=== PATIENT | male | born 2005 | race Caucasian/White ===

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

== ENCOUNTER 2024-02-11 16:15 | Emergency (ER) | payer BC, SELFPAY ==
[2024-02-11 16:55] VITALS: BP 112/67; PULSE 64; RESP 20; TEMP 37.2; O2SAT 100; BMI 21.6
--- NOTE | 2024-02-11 17:17 | ED_ITS ---
Discharge Plan Disposition Patient Disposition: Home, Self-Care Condition: Good Referrals Follow up/Referrals: Bridgett Rod MD [Primary Care Provider] - See instructions Activity Restrictions/Add. Instructions Additional Instructions/Restrictions: Follow up with your Family Doctor in the next 5-7 days for the results and treatment if needed Withstain from sexual activity until your test is negative or you have treatment Follow up with your Family Doctor as needed Clinical Impressions Clinical Impression: Exposure to chlamydia Instructions Patient Instructions: Informing Partners of STI Patients Reduces Ongoing and Recurrent Sexually T, Let's Talk About Sex (and STIs), Chlamydia Print Language Print Language: Telugu Discharge ED Provider: Joann Menchaca [facility] HPI General Stated complaint: STI test Mode of Arrival: Ambulatory Source of Information: Patient Limitations: No Limitations Time Seen by Provider: 02/11/24 17:17 Description of Symptoms (Recalled from Triage Doc. by RN): PATIENT REQUESTING CHLAMYDIA/STD TEST HEENT Symptoms (Recalled from RN notes): No Resp Symptoms (Recalled from RN notes): No Skin Symptoms (Recalled from RN notes): No MS Symptoms (Recalled from RN notes): No Functional Status (Recalled from RN notes): WNL History of Present Illness Provider Complaint: Patient requesting to be tested for Chlamydia States he was with a Tender date a couple months ago and text and said she has Chlamydia not sure if she had it when she was with him or not and he isnt having any symptoms but wanted to get tested Related Data Allergies Allergy/AdvReac Type Severity Reaction Status Date / Time No Known Allergies Allergy Verified 03/20/23 14:13 Worker's Comp Is this a Worker's Comp case?: No [facility] Disclaimer: The information contained in this section may have been updated after the patient was seen, as this information can be updated by other users. Social History (Updated 03/20/23 @ 14:24 by Joann Menchaca APRN) Smoking Status: Unknown if ever smoked alcohol intake: never current occupational status: student Travel in the last 8 weeks: None ROS Obtained: Yes All systems reviewed & no additional complaints except as documented and Yes Systems reviewed as appropriate & no additional complaints except as documented Constitutional Constitutional: Reports system reviewed and no additional complaints, except as documented and Reports as per HPI Eyes Eyes: Reports system reviewed and no additional complaints, except as documented and Reports as per HPI ENT Ears, Nose, Mouth, and Throat: Reports system reviewed and no additional complaints, except as documented and Reports as per HPI Cardiovascular Cardiovascular: Reports system reviewed and no additional complaints, except as documented and Reports as per HPI Respiratory Respiratory: Reports system reviewed and no additional complaints, except as documented and Reports as per HPI Gastrointestinal Gastrointestingal: Reports system reviewed and no additional complaints, except as documented and as per HPI Genitourinary Male Genitourinary: Reports system reviewed and no additional complaints, except as documented, Reports as per HPI, Denies difficulty urinating, Denies difficulty with ejaculations, Denies penile ulceration, Denies genital lesions, Denies genital pain, Denies painful ejaculations, Denies penile discharge, Denies testicular pain and Denies urinary frequency Physical Exam General General appearance: alert and in no apparent distress ENT ENT exam: Present mucous membranes moist Respiratory Respiratory exam: Present normal lung sounds bilaterally; Absent respiratory distress or wheezes Cardiovascular Cardiovascular exam: Present regular rate, normal rhythm and normal heart sounds Abdominal Exam Abdominal exam: Present soft and normal bowel sounds; Absent distention or tenderness Neurological Exam Neurological exam: Present alert, oriented X3 and normal gait Medical Decision Making Kavon Inquiry Pt receiving controlled substance: No Kavon was queried for this patient: No Vital Signs: 02/11/24 16:55 Temperature 99.0 F Temperature Source Oral Pulse Rate [Left Brachial] 64 Respiratory Rate 20 Blood Pressure [Left Arm] 112/67 Blood Pressure Mean [Left Arm] 82 Blood Pressure Source [Left Arm] Automatic Cuff Blood Pressure Position [Left Arm] Sitting 02 Sat by Pulse Oximetry 100 Oxygen Delivery Method Room Air Orders (Tests/Meds): ORDERS Category Date Time Status UA [Urinalysis and Microscopic] Stat Lab 02/11/24 17:11 Ordered
[2024-02-11 17:23] LABS: Microscopic, Urine URINE MICROSCOPIC (MICROSCOPIC)
[2024-02-11 17:29] VITALS: BP 112/67; PULSE 64; RESP 20; TEMP 37.2; O2SAT 100
[2024-02-11 17:33] LABS: Appearance,Urine CLEAR (Clear); Bilirubin,Urine Negative (Negative); Blood, Urine Negative (Negative); Color,Urine YELLOW (Yellow); Glucose,Urine (UA) Negative (Negative); Ketones,Urine Negative (Negative); Leukocyte Esterase,Urine Negative (Negative); Nitrate,Urine Negative (Negative); Protein,Urine Negative (Negative); Specific Gravity, Urine 1.025 (1.005-1.030); Urobilinogen,Urine 0.2 EU/dl (0.2)
[2024-02-11 17:43] LABS: WBC,Urine Occasional #/hpf (0-3)
[2024-02-14 06:18] LABS: Neisseria gonorrhoeae, NAA Negative (Negative)
--- NOTE | 2024-02-14 10:30 | PC.NURSE ---
I relayed pts positive chlamydia test to [place]. I instructed him to take all of the antibiotics as directed that were called in for him today.
== END 2024-02-11 17:34 | disposition home or self-care (01) ==
PROVIDERS: Emergency Provider Nurse Practitioner; PCP Pediatrics
DX: A56.2 Chlamydial infection of genitourinary tract, unspecified (principal)
CPT/HCPCS: 81001; 87491; 87591; 99212; 99214; G0463

== ENCOUNTER 2024-03-02 10:50 | Emergency (ER) | payer BC, SELFPAY ==
[2024-03-02 11:02] VITALS: BP 138/75; PULSE 72; RESP 18; TEMP 36.9; O2SAT 97; BMI 21.7
--- NOTE | 2024-03-02 11:25 | EXP.UTC ---
Discharge Plan Disposition Patient Disposition: Home, Self-Care Condition: Good Prescriptions Prescriptions: New azithromycin 500 mg tablet 1,000 mg PO DAILY 1 Days Qty: 2 0RF No Action doxycycline hyclate 100 mg capsule 100 mg PO BID 7 Days Qty: 14 0RF Referrals Follow up/Referrals: Provider,Referral, MD [Primary Care Provider] - See instructions Activity Restrictions/Add. Instructions Additional Instructions/Restrictions: Take medication as prescribed. Retest in a month if you have persistent symptoms. Retest in 3 months to identify any reinfection. Refrain from sexual activity until antibiotics complete and symptoms resolve and sex partner has been treated. Wear condoms for protection during sex. Clinical Impressions Clinical Impression: Chlamydia Instructions Patient Instructions: Chlamydia, Chlamydia: The Silent STD Print Language Print Language: Palestinian Discharge ED Provider: Richa Luong [facility] [place] HPI General Stated complaint: STD test Mode of Arrival: Ambulatory Source of Information: Patient Time Seen by Provider: 03/02/24 11:25 Description of Symptoms (Recalled from Triage Doc. by RN): RETEST FOR STD AFTER BEING ON ABX FOR A WEEK, WORRIED CAUSE HE MISSED A DOSE OR TWO D/T VOMITING, NO S/S HEENT Symptoms (Recalled from RN notes): No Resp Symptoms (Recalled from RN notes): No Skin Symptoms (Recalled from RN notes): No MS Symptoms (Recalled from RN notes): No Functional Status (Recalled from RN notes): WNL History of Present Illness Provider Complaint: Pt reports that he only took one pill a day for 3 days then vomited a pill the next day. He states that he only took two pills a day for 3 days. He is concerned due to nonadherence to treatment. Related Data Previous Rx's ?Medication ?Instructions ?Recorded doxycycline hyclate 100 mg capsule 100 mg PO BID 7 days #14 caps 02/14/24 azithromycin 500 mg tablet 1,000 mg (2 x 500 mg) PO DAILY 1 03/02/24 day #2 tabs Allergies Allergy/AdvReac Type Severity Reaction Status Date / Time No Known Allergies Allergy Verified 03/20/23 14:13 Worker's Comp Is this a Worker's Comp case?: No [facility] Disclaimer: The information contained in this section may have been updated after the patient was seen, as this information can be updated by other users. Social History (Updated 03/20/23 @ 14:24 by Nataly Menchaca, [employer]) Smoking Status: Unknown if ever smoked alcohol intake: never current occupational status: student Travel in the last 8 weeks: None ROS Obtained: Yes All systems reviewed & no additional complaints except as documented Constitutional Constitutional: Reports system reviewed and no additional complaints, except as documented Eyes Eyes: Reports system reviewed and no additional complaints, except as documented ENT Ears, Nose, Mouth, and Throat: Reports system reviewed and no additional complaints, except as documented Cardiovascular Cardiovascular: Reports system reviewed and no additional complaints, except as documented Respiratory Respiratory: Reports system reviewed and no additional complaints, except as documented Gastrointestinal Gastrointestingal: Reports system reviewed and no additional complaints, except as documented Genitourinary Male Genitourinary: Reports system reviewed and no additional complaints, except as documented Musculoskeletal Musculoskeletal: Reports system reviewed and no additional complaints, except as documented Integumentary/Breasts Skin/Breast: Reports system reviewed and no additional complaints, except as documented Neurologic Neurologic: Reports system reviewed and no additional complaints, except as documented Hematologic/Lymphatic Henatologic/Lymphatic: Reports system reviewed and no additional complaints, except as documented Allergic/Immunologic Allergic/Immunologic: Reports system reviewed and no additional complaints, except as documented Physical Exam General General appearance: alert and in no apparent distress Head Head exam: atraumatic and normocephalic Eye Eye exam: Present normal appearance ENT ENT exam: Present normal oropharynx Neck Neck exam: Present normal inspection Chest Chest inspection: Present normal inspection and symmetric chest wall rise Respiratory Respiratory exam: Present normal lung sounds bilaterally Cardiovascular Cardiovascular exam: Present regular rate, normal rhythm and normal heart sounds Abdominal Exam Abdominal exam: Present soft Extremities Exam Extremities exam: Present normal inspection Back Exam Back exam: Present normal inspection Neurological Exam Neurological exam: Present alert and oriented X3 Psychiatric Psychiatric exam: Present normal affect and normal mood Skin Skin exam: Present warm, dry and intact Lymphatic Lymphatic Findings: no adenopathy Medical Decision Making Medical Records Screening: Per USPSTF and CDC recommendations, given the prevalence of disease in our region, it is our hospital?s policy to screen for HIV and viral Hepatitis for all patients aged 18 and over and those with ongoing risk factors. Kavon Inquiry Pt receiving controlled substance: No Kavon was queried for this patient: No Vital Signs: 03/02/24 11:02 Temperature 98.4 F Temperature Source Oral Pulse Rate [Left Radial] 72 Respiratory Rate 18 Blood Pressure [Left Arm] 138/75 Blood Pressure Mean [Left Arm] 96 02 Sat by Pulse Oximetry 97
[2024-03-02 12:13] VITALS: BP 138/75; PULSE 72; RESP 18; TEMP 36.9
[2024-03-04 20:09] LABS: Neisseria gonorrhoeae, NAA Negative (Negative)
== END 2024-03-02 12:14 | disposition home or self-care (01) ==
PROVIDERS: Emergency Provider Nurse Practitioner Family
DX: A74.9 Chlamydial infection, unspecified (principal)
CPT/HCPCS: 87491; 87591; 99213; G0381

== ENCOUNTER 2024-05-23 13:10 | Emergency (ER) | payer BC, SELFPAY ==
[2024-05-23 15:25] VITALS: BP 106/67; PULSE 93; RESP 18; TEMP 36.8; O2SAT 100; BMI 23.0
--- NOTE | 2024-05-23 15:29 | ED_ITS ---
Discharge Plan Disposition Patient Disposition: Home, Self-Care Condition: Good Prescriptions Prescriptions: No Action doxycycline hyclate 100 mg capsule 100 mg PO BID 7 Days Qty: 14 0RF azithromycin 500 mg tablet 1,000 mg PO DAILY 1 Days Qty: 2 0RF Referrals Follow up/Referrals: Provider,Referral, [Primary Care Provider] - See instructions Activity Restrictions/Add. Instructions Additional Instructions/Restrictions: Follow up with your Family Doctor or the Health Dept Your test results should be back in the next 3-5 days No sexual intercourse until you get the test back and it is negative Clinical Impressions Clinical Impression: Chlamydia Instructions Patient Instructions: Chlamydia, DI for Chlamydia Print Language Print Language: Vietnamese Discharge ED Provider: Joann Menchaca [facility] HPI General Stated complaint: Final test for STI Time Seen by Provider: 05/23/24 15:29 History of Present Illness Provider Complaint: Patient states that he had Chlamydia in Sept States that he has finished all his medication and is no longer having any symptoms but wanted to get checked again just to make sure that it is gone Related Data Allergies Allergy/AdvReac Type Severity Reaction Status Date / Time No Known Allergies Allergy Verified 03/20/23 14:13 [facility] Disclaimer: The information contained in this section may have been updated after the leopoldo vale was seen, as this information can be updated by other users. Medical History (Updated 05/23/24 @ 15:35 by Joann Menchaca APRN) No significant past medical history Social History (Updated 03/20/23 @ 14:24 by Joann Menchaca APRN) Smoking Status: Unknown if ever smoked alcohol intake: never current occupational status: student Travel in the last 8 weeks: None Have you lived/traveled outside [place] in past 30 days?: No Contact w/someone who lives/traveled outside US past 30 days?: No Exposure to someone with infectious disease in past 14 days?: No Do you have a fever (greater than 100.4 F or 38 C)?: No Have you tested positive for COVID-19: No Exposed to someone with COVID-19 in past 14 days?: No Do you have a sore throat?: No Do you have a cough?: No Do you have any weakness?: No Do you have any diarrhea?: No Are you experiencing any unusual bleeding?: No Do you have any muscle aches/pain?: No Do you have any abdominal pain?: No Are you experiencing loss of taste or smell?: No ROS Obtained: Yes All systems reviewed & no additional complaints except as documented and Yes Systems reviewed as appropriate & no additional complaints except as documented Constitutional Constitutional: Reports system reviewed and no additional complaints, except as documented and Reports as per HPI ENT Ears, Nose, Mouth, and Throat: Reports system reviewed and no additional complaints, except as documented and Reports as per HPI Cardiovascular Cardiovascular: Reports system reviewed and no additional complaints, except as documented and Reports as per HPI Respiratory Respiratory: Reports system reviewed and no additional complaints, except as documented and Reports as per HPI Gastrointestinal Gastrointestingal: Reports system reviewed and no additional complaints, except as documented and as per HPI Genitourinary Male Genitourinary: Reports system reviewed and no additional complaints, except as documented and Reports as per HPI Physical Exam General General appearance: alert and in no apparent distress ENT ENT exam: Present normal exam, normal oropharynx, mucous membranes moist and TM's normal bilaterally Respiratory Respiratory exam: Present normal lung sounds bilaterally; Absent respiratory distress or wheezes Cardiovascular Cardiovascular exam: Present regular rate, normal rhythm and normal heart sounds Abdominal Exam Abdominal exam: Present soft and normal bowel sounds; Absent distention or tenderness Neurological Exam Neurological exam: Present alert, oriented X3 and normal gait Medical Decision Making Medical Records Screening: Per USPSTF and CDC recommendations, given the prevalence of disease in our region, it is our hospital?s policy to screen for HIV and viral Hepatitis for all patients aged 18 and over and those with ongoing risk factors. Kavon Inquiry Pt receiving controlled substance: No Kavon was queried for this patient: No
[2024-05-23 15:38] VITALS: BP 155/97; PULSE 81; RESP 18; TEMP 36.7; O2SAT 100
== END 2024-05-23 15:39 | disposition home or self-care (01) ==
LOC: ER 13:12 → UTC 13:13
PROVIDERS: Emergency Provider Nurse Practitioner
DX: A56.00 Chlamydial infection of lower genitourinary tract, unspecified (principal)
CPT/HCPCS: 99213; G0381